=== PATIENT | male | born 1960 | race Caucasian/White ===

== ENCOUNTER 2016-12-18 15:49 | Observation (INO) | payer OTHER ==
[~2016-12-18] VITALS: Ht 182.9 cm; Wt 81.6 kg
[~2016-12-18 15:49] MED LIST: ALPR.25T PO; CEPH-331 PO; CEPH-507 PO; LVF500T PO; NF-TORA10 PO; OMEP20CA6
--- OUTSIDE RECORDS SUMMARY | 2016-12-18 15:53 | XMS REPORT | Continuity of Care Document ---
Author Author [facility] Address Unknown Phone Unavailable Care Team Providers Care Blackjack Supervisor Name Role Phone KENIA RICARDO MD PCP [phone] Insurance Providers Payer Name Policy Number Subscriber Name Relationship UMR [id number] Yan Muse 17 Self / Same As Patient Advance Directives Directive Response Recorded Date/Time Advanced Directives No 08/14/16 7:50pm Chief Complaint and Reason for Visit Chief Complaint Cardiac Complaint Reason for Visit Anxiety Alcohol abuse [id number] Problems Active Problems Medical Problem Onset Date Status Alcohol abuse Unknown Acute Anxiety Unknown Acute High blood pressure Unknown Acute Laceration of finger Unknown Acute Orchitis and epididymitis Unknown Acute Puncture wound of foot ~01/05/2015 Acute Medications Current Home Medications Medication Dose Units Route Directions Days/Qty Instructions Start Date Alprazolam (Xanax) 0.25 Mg 0.25 Mg ORAL Four Times Daily 15 08/14/16 Past Home Medications Medication Directions Ordered Status Omeprazole 20 Mg Capsule.dr, Daily 09/12/13 Discontinued Cephalexin 500 Mg Capsule, 500 Mg Oral Three Times A Day 01/05/15 Discontinued Levofloxacin 500 Mg Tab, 500 Mg Oral Daily 10/28/15 Discontinued Ketorolac Tromethamine 10 Mg Tab, 10 Mg Oral Every 6 Hours as needed for Pain 10/28/15 Discontinued Cephalexin Monohydrate 500 Mg Capsule, 500 Mg Oral Twice A Day 02/24/16 Discontinued Social History Query Response Start Date Stop Date Smoking Status Current every day smoker Hospital Discharge Instructions No hospital discharge instructions. Plan of Care Discharge Date 08/14/16 10:30pm Disposition 01 HOME OR SELF-CARE Condition at Discharge Stable Instructions/Education Provided Generalized Anxiety Disorder (ED) Abuse of Alcohol (GEN) Prescriptions See Medication Section Referrals KENIA RICARDO MD - Additional Instructions/Education ED MARCI if any worse. Xanax as directed. See your doctor this week. Some of your test results may not be complete prior to your leaving the Emergency Department. The Emergency Department is not authorized to give test results over the phone. Please contact the doctor's office listed in this packet of information for your final results. Follow up with your primary care physician or return to the Emergency Department for worsening or worrisome symptoms. * Emergency Department phone number: [phone], x [phone]* MEDICAL RECORD If you need copies of your X-rays, call [phone]. If you need copies of your medical record, including lab results, a signed authorization for release of records will be required. A telephone call for release of Health Information is not allowed. BILLING Billing can sometimes be confusing and frustrating. To help avoid confusion in the future, please take a moment to acquaint yourself with the billing parties for services. SERVICE BILLING DEMOCRAT Emergency Room Services [facility] Physician Services [facility] X-[facility] Patients will receive bills for services from the appropriate provider. If you have any questions about your [facility] bill, our staff will be happy to assist you. Please call [phone], and ask for the billing department. THANK YOU for choosing [facility] as your emergency care provider! Care Plan and Goals ~~Discharge Care Plan~~ Problem: Problems with coping. Goal: Patient will use appropriate resources to deal with life situations. Instructions: Call [place] hotline @ for assistance. Follow up with screener as directed. Functional Status No functional status results. Allergies, Adverse Reactions, Alerts Allergen Type Severity Reaction Status Last Updated Hydrocodone Allergy Mild Active 08/14/16 Oxycodone Allergy Mild rash Active 08/14/16 Acetaminophen Allergy Mild rash Active 08/14/16 Immunizations No immunization records. Vital Signs Acute Vital Signs Vital Response Date/Time Temperature (Fahrenheit) 98.4 08/14/2016 10:34pm Pulse 95 bpm 08/14/2016 10:34pm Respirations 20 08/14/2016 10:34pm Height 6 ft 0 in Weight 188 lb Body Mass Index 25.0 kg/m^2 Results Laboratory Results Test Name Result Units Flags Reference Collection Date/Time Result Date/ Time Comments White Blood Count 8.69 10^3uL 4.0-11.0 08/14/2016 8:15pm 08/14/2016 8: 34pm Red Blood Count 5.00 10^6uL 4.50-5.50 08/14/2016 8:15pm 08/14/2016 8: 34pm Hemoglobin 16.5 g/dL 13.5-17.0 08/14/2016 8:15pm 08/14/2016 8:34pm Hematocrit 45.40 % 39.00-50.00 08/14/2016 8:15pm 08/14/2016 8:34pm Mean Corpuscular Volume 91 FL 80-100 08/14/2016 8:15pm 08/14/2016 8: 34pm Mean Corpuscular Hemoglobin 33.0 PG 26.0-34.0 08/14/2016 8:15pm 2015 8:34pm Mean Corpuscular Hemoglobin Concent 36.3 g/dL 31.0-37.0 08/14/2016 8: 15pm 08/14/2016 8:34pm Red Cell Distribution Width 12.0 % 11.8-15.6 08/14/2016 8:15pm 2015 8:34pm Platelet Count 261 10^3uL 150-450 08/14/2016 8:15pm 08/14/2016 8:34pm Mean Platelet Volume 8.8 FL 6.0-9.5 08/14/2016 8:15pm 08/14/2016 8: 34pm Neutrophils (%) (Auto) 78 % H 51-67 08/14/2016 8:15pm 08/14/2016 8:34pm Lymphocytes (%) (Auto) 11 % L 20-46 08/14/2016 8:15pm 08/14/2016 8:34pm Monocytes (%) (Auto) 8 % 3-11 08/14/2016 8:15pm 08/14/2016 8:34pm Eosinophils (%) (Auto) 1 % 0-4 08/14/2016 8:15pm 08/14/2016 8:34pm Basophils (%) (Auto) 1 % 0-2 08/14/2016 8:15pm 08/14/2016 8:34pm Neutrophils # (Auto) 6.8 X10^3 08/14/2016 8:15pm 08/14/2016 8:34pm Lymphocytes # (Auto) 1.0 X10^3 08/14/2016 8:15pm 08/14/2016 8:34pm Monocytes # (Auto) 0.7 X10^3 08/14/2016 8:15pm 08/14/2016 8:34pm Eosinophils # (Auto) 0.1 10^3uL 08/14/2016 8:15pm 08/14/2016 8:34pm Basophils # (Auto) 0.0 10^3uL 08/14/2016 8:15pm 08/14/2016 8:34pm Volume Urine Centrifuged 12 mL 08/14/2016 8:15pm 08/14/2016 9:09pm Urine Collection Type CLEAN CATCH 08/14/2016 8:15pm 08/14/2016 9: 09pm Urine Color Dark Yellow 08/14/2016 8:15pm 08/14/2016 9:03pm Urine Clarity Clear 08/14/2016 8:15pm 08/14/2016 9:03pm Urine pH 7.5 5.0 - 8.0 08/14/2016 8:15pm 08/14/2016 9:03pm Urine Specific [place] 1.020 1.005-1.030 08/14/2016 8:15pm 2015 9:03pm Urine Protein 2+ H Negative 08/14/2016 8:15pm 08/14/2016 9:03pm Urine Glucose (UA) Negative Negative 08/14/2016 8:15pm 08/14/2016 9: 03pm Urine RBC (Auto) Trace-intact H Negative 08/14/2016 8:15pm 08/14/2016 9:03pm Urine Ketones 2+ H Negative 08/14/2016 8:15pm 08/14/2016 9:03pm Urine Nitrite Negative Negative 08/14/2016 8:15pm 08/14/2016 9:03pm Urine Bilirubin 1+ H Negative 08/14/2016 8:15pm 08/14/2016 9:03pm [place], [place] metabolite and atypical colors may interfere with the interpretation of the Bilirubin reaction. Further testing is required for confirmation. Urine Urobilinogen 1.0 mg/dL 0.2-1.0 08/14/2016 8:15pm 08/14/2016 9: 03pm Urine Leukocyte Esterase Negative Negative 08/14/2016 8:15pm 2015 9:03pm Urine RBC 0-2 /HPF 08/14/2016 8:15pm 08/14/2016 9:09pm Urine WBC None Seen /HPF 08/14/2016 8:15pm 08/14/2016 9:09pm Urine Bacteria None Seen /HPF 08/14/2016 8:15pm 08/14/2016 9:09pm Urine Squamous Epithelial Cells None /LPF 08/14/2016 8:15pm 2015 9:09pm Urine Mucus 3+ H 08/14/2016 8:15pm 08/14/2016 9:09pm Urine Sperm 1+ /HPF 08/14/2016 8:15pm 08/14/2016 9:09pm Sodium Level 143 mmol/L 135-150 08/14/2016 8:15pm 08/14/2016 8:53pm Potassium Level 3.8 mmol/L 3.5-5.1 08/14/2016 8:15pm 08/14/2016 8:53pm Chloride Level 99 mmol/L 98-108 08/14/2016 8:15pm 08/14/2016 8:53pm Carbon Dioxide Level 30 mmol/L H 22-29 08/14/2016 8:15pm 08/14/2016 8: 53pm Anion Gap 18.4 MEQ/L H 3-15 08/14/2016 8:15pm 08/14/2016 8:53pm Blood Urea Nitrogen 15 mg/dL 7-18 08/14/2016 8:15pm 08/14/2016 8:53pm Creatinine 0.77 mg/dL L 0.8-1.5 08/14/2016 8:15pm 08/14/2016 8:53pm BUN/Creatinine Ratio 19 10-20 08/14/2016 8:15pm 08/14/2016 8:53pm Estimat Glomerular Filtration Rate 126.5 08/14/2016 8:15pm 2015 8:53pm Estimated GFR (Non- 104.5 08/14/2016 8:15pm 2015 8:53pm Glucose Level 97 mg/dL # 70-110 08/14/2016 8:15pm 08/14/2016 8:53pm Calculated Osmolality 277 mosm/L L 280-300 08/14/2016 8:15pm 08/14/2016 8:53pm Calcium Level 9.5 mg/dL 8.8-10.8 08/14/2016 8:1508/14/2016 8:53pm Calcium/Ionized Calcium Ratio 3.7 mg/dL L 3.8-4.6 08/14/2016 8:15 8:53pm Magnesium Level 2.0 mg/dL 1.6-2.3 08/14/2016 8:15pm 08/14/2016 8:53pm Total Bilirubin 1.1 mg/dL H 0.1-1.0 08/14/2016 8:15pm 08/14/2016 8:53pm Alkaline Phosphatase 75 U/L 38-126 08/14/2016 8:1508/14/2016 8:53pm Aspartate Amino Transf (AST/SGOT) 31 U/L 15-37 08/14/2016 8:152015 8:53pm Alanine Aminotransferase (ALT/SGPT) 35 U/L 30-65 08/14/2016 8:15pm 8:53pm Total Creatine Kinase 101 U/L 55-170 08/14/2016 8:15pm 08/14/2016 8: 53pm Creatine Kinase MB 1.0 ng/mL 0.0-6.0 08/14/2016 8:1508/14/2016 9: 02pm Troponin I < 0.012 ng/mL 0.010-0.080 08/14/2016 8:15pm 08/14/2016 9: 02pm TQ-Mne-S-Type Natriuretic Peptide 23 pg/mL 0-125 08/14/2016 8:15pm 9:02pm <300 ng/mL - HF unlikely Age <50 years, NT-proBNP >450 pg/mL - HF Likely Age 50-75 yrs, NT-proBNP >900 pg/mL - HF Likely Age >75 yrs, NT-proBNP >1800 - HF likely Total Protein 8.8 g/dL H 6.4-8.5 08/14/2016 8:15pm 08/14/2016 8:53pm Albumin 4.9 g/dL 3.4-5.0 08/14/2016 8:15pm 08/14/2016 8:53pm Albumin/Globulin Ratio 1.256 1.1-1.8 08/14/2016 8:15pm 08/14/2016 8: 53pm Thyroid Stimulating Hormone (TSH) 1.03 uIU/mL 0.46-4.68 08/14/2016 8: 15pm 08/14/2016 10:20pm Serum Alcohol < 10.0 mg/dL L 10-80 08/14/2016 8:15pm 08/14/2016 8:53pm Procedures No known history of procedures. Encounters Encounter Location Arrival/Admit Date Discharge/Depart Date Attending Provider Departed Emergency Room [facility] 08/14/16 7:32pm 08/14/16 10:30pm WALTER LEONARD MD Recent Diagnosis
[2016-12-18] MEDS ORDERED: LORazepam 2 MG/ML (ATIVAN) 1 ML VIAL IV ONE (16:15)
[2016-12-18] MEDS ORDERED: MAGNESIUM SULFATE 1 GM/2 ML VIAL ONE (16:19)
[2016-12-18] MEDS ORDERED: THIAMINE 100 MG/ML (VITAMIN B1) 2 ML VIAL ONE (16:19)
[2016-12-18 16:30] LABS: BASOPHILS % (AUTO) 0 % (0-2); EOSINOPHILS # (AUTO) 0.1 10^3uL; EOSINOPHILS % (AUTO) 1 % (0-4); LYMPHOCYTES # (AUTO) 1.2 X10^3; MEAN CORPUSCULAR VOLUME 91 FL (80-100); MEAN PLATELET VOLUME 9.1 FL (6.0-9.5); MONOCYTES # (AUTO) 0.9 X10^3; MONOCYTES % (AUTO) 14 % (3-11); NEUTROPHILS # (AUTO) 4.2 X10^3; NEUTROPHILS % (AUTO) 66 % (51-67); PLATELET COUNT 174 10^3uL (150-450)
[2016-12-18 16:31] LABS: MEAN CORPUSCULAR HEMOGLOBIN 32.6 PG (26.0-34.0)
[2016-12-18] MEDS: MAGNESIUM SULFATE 1GM VIAL 2 GM, THIAMINE INJ 100 MG, MULTIVITAMIN INJ 10 ML in D5LR 1,... IV SCH ×3 (16:31→20:19)
[2016-12-18 16:36] LABS: CLARITY,URINE Clear; GLUCOSE, URINE (UA) Negative (Negative); LEUKOCYTE ESTERASE ,URINE Negative (Negative); PH,URINE 6.5 (5.0 - 8.0)
[2016-12-18 16:46] LABS: BILIRUBIN,URINE 1+ (Negative); COLOR,URINE Dark Yellow; URINE CENTRIFUGED VOLUME 12 mL
[2016-12-18 16:47] LABS: AMPHETAMINE SCREEN, URINE Negative (Negative); CANNABINOID SCREEN, URINE Negative (Negative); METHAMPHETAMINE SCREEN URINE S NEGATIVE (NEGATIVE); OPIATE SCREEN URINE Negative (Negative); PROPOXYPHENE STAT NEGATIVE (NEGATIVE)
[2016-12-18 16:50] LABS: ALBUMIN 4.4 g/dL (3.4-5.0); ALKALINE PHOSPHATASE 100 U/L (38-126); ANION GAP 19.5 MEQ/L (3-15); BUN/CREATININE RATIO 25 (10-20); CALCULATED IONIZED CALCIUM 3.9 mg/dL (3.8-4.6); CREATINE KINASE 104 U/L (55-170); LIPASE* 147 U/L (23-300); TOTAL PROTEIN 7.3 g/dL (6.4-8.5)
[2016-12-18] MEDS ORDERED: LABETALOL HCL 20 MG/4 ML VIAL IV ONE (17:00)
--- NOTE | 2016-12-18 17:19 | Diagnostic Imaging Report ---
INDICATION: Shortness breath. EXAM: PA and lateral chest. FINDINGS: The heart size and pulmonary vascularity are normal. The lungs are clear. There are no effusions or pneumothoraces. IMPRESSION: Negative chest. Dictated by: Dictated on workstation # [id number]
--- NOTE | 2016-12-18 18:40 | NUR ---
Patient arrives to room 301 via wheelchair from ED accompanied by Karina Michelle RN. Alert and oriented X3. Denies pain, tremors, anxiety, or other distress. BP upon arrival = 153/102 and pulse= [address] Esteves in room to see patient. See admission for full assessment.
[2016-12-18 18:43] VITALS: BP 153/102
[2016-12-18] MEDS ORDERED: cloNIDine 0.1 MG (CATAPRES) TAB PO ONE (18:45)
[2016-12-18] MEDS: cloNIDine 0.1 MG (CATAPRES) TAB PO SCH ×2 (19:00→19:24)
--- NOTE | 2016-12-18 19:03 | NUR ---
Manual BP 158/107. Catapres 0.1mg PO X1 provided per verbal order from Dr. Esteves. Will continue to monitor.
[2016-12-18] MEDS ORDERED: ACETAMINOPHEN 500 MG TAB (TYLENOL) PO PRN (19:10)
[2016-12-18 19:44] VITALS: BP 147/96
--- NOTE | 2016-12-18 19:48 | History and Physical (E) ---
History & Physical PCP: Isacc Howell MD CC I was sweating profusely and Iwas very anxious. HPI pt. is an alcoholic and he stopped drinking 3 days ago. on weekdays he drinks ,he says, 8-10 ounces of hard liquorma night and on the weekends 2 to 3 times that much. PMH pt. may have a touch of emphysema; he is an alcoholic and he has had at least 4 "kidney stones " which he knows about. PSH left herniorraphy; repair of right biceps tendon repair; 4 surgically removed wisdom teeth ALLERGIES: Please see list at end of report. HOME MEDICATIONS: Please see list at end of report. FH non contributory SH pt is ;he has 3 adult sons;smoked off and on for 41 years for a total of about 12 pack years of cigaretts;no street drugs;pt. has worked in the same [employer] shop for 21 years.pt. has attended a few AA meetings over the years ROS CONSTITUTION: Denies weight loss or gain. Denies fever or chills. HEENT: No change in vision or hearing. No sores in mouth, sore throat. CV: No chest pain, palpitations. PULM: No cough, shortness of breath, difficulty breathing. GI: No upset stomach, nausea, vomiting, constipation, or diarrhea. No blood in stool. : No dysuria. No blood in urine. MS: No new muscle or joint aches and pains. NEURO: No numbness or tingling. No weakness. INTEG: No rashes, lesions, or sores. ENDO: No heat or cold intolerance. No polydipsia or polyuria. HEME/LYMPH: No easy bruising or bleeding. No swollen glands. PSYCH: No change in mood or behavior;lots of sweating today and quite a bit of anxiety. OBJECTIVE GEN: Awake, alert, oriented, NAD HEENT: EOMI, PERRL, dry oral mucosa and dry tongue. CV: RRR S1 S2 normal with no murmur LUNGS: CTA Bilaterally ABD: Soft, NT/ND with normal bowel sounds. EXTR: No C/C/E. Normal peripheral pulses. INTEG: No rash and no bruising NEURO: No focal motor neuro deficit. Weight: 81.6 kg LAB12/18/16 16:25 MICRO IMAGING pt. had a negative chest xray in the er. ASSESSMENT 1.alcohol abuse 2.hypertension,uncontrolled 3.anxiety 4.alcohol withdrawal PLAN We plan to control patient's anxiety with ativan and librium; we shall try to tame the hypertension with clonidine and we shall encourage hydration. Allergies/Home Medications Allergies: Coded Allergies: hydrocodone (Verified Allergy, Mild, 12/18/16) rash oxycodone (Verified Allergy, Mild, rash, 12/18/16) Reported Home Medications Discontinued Medications Alprazolam (Alprazolam) 0.25 MG PO QID Discontinued Reason: Update list Copies to: End of Report . KATHRYN CALDERON DO Dec 18, 2016 19:48
[2016-12-18 20:48] VITALS: BP 149/91
[2016-12-18] MEDS: LORazepam 0.5 MG (ATIVAN) TABLET PO PRN (21:36)
[2016-12-18] MEDS: CHLORDIAZEPOXIDE 10 MG PO SCH (21:56)
[2016-12-18 23:42] VITALS: BP 140/86
[2016-12-19] MEDS: LORazepam 0.5 MG (ATIVAN) TABLET PO PRN (01:52)
--- NOTE | 2016-12-19 01:55 | NUR ---
Pt c/o "not being able to sleep." "This is when I usually start drinking to help me fall asleep." PRN martin provided.
[2016-12-19 04:02] VITALS: BP 166/95
--- NOTE | 2016-12-19 05:07 | NUR ---
Pt c/o coughing and acid reflux. Requests something for that and a nicotine patch. Telehospitalist notified.
[2016-12-19] MEDS ORDERED: NICOTINE 14 MG (NICODERM) PATCH TD SCH (05:30)
[2016-12-19] MEDS ORDERED: BENZONATATE 100 MG (TESSALON) CAPSULE PO PRN (05:30)
[2016-12-19] MEDS ORDERED: PANTOPRAZOLE 40 MG (PROTONIX) TAB PO SCH ×2 (05:30→08:25)
[2016-12-19] MEDS: CHLORDIAZEPOXIDE 10 MG PO SCH ×2 (05:34→14:00)
--- NOTE | 2016-12-19 05:45 | NUR ---
Nicotine patch placed to R shoulder. PRN Tessalon perles, tylenol given for cough. Protonix given per order. Pt verbalizes concern over cough. Reassurance provided.
[2016-12-19 07:20] VITALS: BP 158/97
--- NOTE | 2016-12-19 08:39 | Progress Note (E) ---
Progress Note S: Awake and alert, Ate breakfast but feels achey and miserable- thinks he has the flu, Still feels a bit anxious O: I & O Past 24 hrs 12/19/16 07:00 Intake Total 1550 ml Output Total 1300 ml Balance 250 ml Intake Oral 1550 ml Output Urine Total 1300 ml # Bowel Movements 1 Vitals: Vital Signs Date Time Temp Pulse Resp B/P Pulse Ox O2 Delivery O2 Flow Rate FiO2 12/19/16 07:20 97.6 73 16 158/97 96 Room air GEN: Awake, alert, oriented, NAD HEENT: EOMI, PERRL, moist mucosa CV: RRR S1 S2 normal with no murmur LUNGS: CTA Bilaterally- loose cough ABD: Soft, NT/ND with normal bowel sounds. EXTR: No C/C/E. Normal peripheral pulses. INTEG: No rash and no bruising NEURO: No focal motor neuro deficit. Weight: 81.6 kg CBC BMP Last 24 Hrs 12/18/16 16:25 Laboratory Results Past 24 Hrs 12/18/16 16:00: Ur Tricyclic Antidepressants Screen Negative, Urine Amphetamines Screen Negative , Urine Bacteria Rare, Urine Barbiturates Screen Negative, Urine Benzodiazepines Screen Negative, Urine Bilirubin 1+, Urine Blood Trace-lysed, Urine Cannabinoids Screen Negative, Urine Clarity Clear, Urine Cocaine Screen Negative, Urine Collection Type Clean catch, Urine Color Dark yellow, Urine Glucose (UA) Negative, Urine Hyaline Casts 1+, Urine Ketones 3+, Urine Leukocyte Esterase Negative, Urine Methadone Screen Negative, Urine Methamphetamines Screen Negative, Urine Microscopic RBC 2-5, Urine Mucus 3+, Urine Nitrite Negative, Urine Opiates Screen Negative, Urine Oxycodone Screen Negative, Urine Phencyclidine Screen Negative, Urine Propoxyphene Screen Negative, Urine Protein 3+, Urine Specific [place] 1.025, Urine Squamous Epithelial Cells 5-10, Urine Urobilinogen 1.0, Urine WBC 0-2, Urine pH 6.5, Volume Urine Centrifuged 12 ml 12/18/16 16:25: Alanine Aminotransferase (ALT/SGPT) 68, Albumin 4.4, Albumin/Globulin Ratio 1.517, Alkaline Phosphatase 100, Anion Gap 19.5, Aspartate Amino Transf (AST/ SGOT) 48, BUN/Creatinine Ratio 25, Basophils # (Auto) 0.0, Basophils (%) (Auto) 0, Blood Urea Nitrogen 17, C-Reactive Protein 1.30, Calcium Level 9.1, Calcium/ Ionized Calcium Ratio 3.9, Calculated Osmolality 275, Carbon Dioxide Level 26, Chloride Level 99, Creatine Kinase MB 0.7, Creatinine 0.69, Eosinophils # (Auto ) 0.1, Eosinophils (%) (Auto) 1, Estimat Glomerular Filtration Rate 143.0, Estimated GFR (Non- 118.2, Glucose Level 107, Hematocrit 48.60, Hemoglobin 17.5, Lactic Acid Level 1.2, Lipase 147, Lymphocytes # (Auto) 1.2, Lymphocytes (%) (Auto) 18, Mean Corpuscular Hemoglobin 32.6, Mean Corpuscular Hemoglobin Concent 36.0, Mean Corpuscular Volume 91, Mean Platelet Volume 9.1, Monocytes # (Auto) 0.9, Monocytes (%) (Auto) 14, Neutrophils # (Auto) 4.2, Neutrophils (%) (Auto) 66, Platelet Count 174, Potassium Level 4.0, Red Blood Count 5.37, Red Cell Distribution Width 11.8, Serum Alcohol < 10.0, Sodium Level 141, Total Bilirubin 0.7, Total Creatine Kinase 104, Total Protein 7.3, Troponin I 0.018, White Blood Count 6.40 ASSESSMENT 1.alcohol abuse 2.hypertension,uncontrolled 3.anxiety 4.alcohol withdrawal PLAN: We plan to control patient's anxiety with ativan and librium; we shall try to tame the hypertension with clonidine and we shall encourage hydration. addendum : pt did complain to me about one episode of diarrhea last night. He looks well today and he can be discharged with a couple of days of ativan prescribed. heart shows aregular rate and rhythm; lungs are cta ,bilaterally; abd. is soft and nontender. pt has no cyanosis or edema in the lower extremities. assessment: 1.alcohol withdrawal 2.alcohol abuse 3.Nervousness and stress due to the alcohol withdrawal. Plan ;DISCHARGE TO HOME with directions to fu with his Doctor and to attend AA meetings. We shall prescribe 2 days of ativan for his transition comfort. I have read and agree with Ms. Kirkpatrick's progress note,diagnoses and plan. We did discuss him at length. Karina Kirkpatrick APRN Dec 19, 2016 08:39 KATHRYN CALDERON DO Dec 19, 2016 11:00
[2016-12-19] MEDS ORDERED: CHLORDIAZEPOXIDE 10 MG PO SCH (09:00)
--- NOTE | 2016-12-19 09:00 | NUR ---
Pt resting in bed at this time. States he did not get much sleep last night and feels lethargic. Denies pain or nausea. Skin warm, dry, intact. Resprs nonlabored, even on RA. SL intact. Denies needs.
[2016-12-19] MEDS: cloNIDine 0.1 MG (CATAPRES) TAB PO SCH (09:33)
[2016-12-19] MEDS ORDERED: LORazepam 0.5 MG (ATIVAN) TABLET PO PRN (10:30)
[2016-12-19] MEDS ORDERED: NS FLUSH 3 ML PRN IV (10:35)
[2016-12-19] MEDS ORDERED: NS FLUSH 10 ML PRN IV (10:35)
[2016-12-19 12:22] VITALS: BP 135/99
--- NOTE | 2016-12-19 12:22 | Discharge Instructions (E) ---
Discharge Instructions Instructions Do take your two new medicines as prescribed.Do follow WITH Dr Howell as per the appt. he has given you. Go to AA; listen to your sponser and no more alcohol. If you can stop smoking, that is a valuable step also. Activity Instructions you may do any activity as tolerated. Discharge Diet: Heart Healthy KATHRYN CALDERON DO Dec 19, 2016 12:22
--- NOTE | 2016-12-19 12:50 | Discharge Summary (E FT) ---
Discharge Summary (E FT) Admit Date Dec 18, 2016 at 17:39 Discharge Date December Admitting Provider Kathryn Calderon DO Primary Care Provider Isacc Howell MD Attending Provider Kathryn Calderon DO Consulting Provider Hospital Course Summary Mr Yan Pope was admitted to our hospital through the ER with a diagnoses of : alcohol withdrawal 2.alcohol abuse 3.anxiety, and 4.hypertension,untreated. We prescribed ativan and librium for his nerves and clonidine for his hypertension.He did well as a patient. He did complain of one episode of diarrhea last night,but that was a minor blip on the big picture. He is stable and much better today and we are discharging him to his home. We have prescribed both a few ativan to him as well as 0.1 mg clonidine bid for his hypertension Discharge Disposition discharged to home. Follow up Instructions Do take your two new medicines as prescribed.Do follow WITH Dr Howell as per the appt. he has given you. Go to AA; listen to your sponser and no more alcohol. If you can stop smoking, that is a valuable step also. Copies to: End of Report . KATHRYN CALDERON DO Dec 19, 2016 12:50
[2016-12-19] MEDS ORDERED: LORA0.5T PO (13:15)
[2016-12-19] MEDS ORDERED: LORA-404 PO (13:15)
[2016-12-19] MEDS ORDERED: CLN.1T PO (13:15)
[2016-12-19] MEDS ORDERED: CLON0.1T PO (13:23)
--- NOTE | 2016-12-19 14:29 | NUR ---
Discharge instructions reviewed with patient, demonstrates understanding. SL removed with catheter tip intact. No redness or edema noted. Pt education provided for new medications and alcohol withdrawal. ROSIBEL Librium and PRN Ativan held at this time per Tom Cantor d/t pt not having a ride home and medications potentially impairing his driving. Pt dismissed via ambulation to private vehicle accompanied by Darren Villavicencio CNA.
[2016-12-20] MEDS ORDERED: PATCH REMOVAL TOP SCH (08:59)
[2016-12-20] MEDS ORDERED: NS FLUSH 3 ML DAILY IV SCH (09:00)
== END 2016-12-19 14:28 | disposition home or self-care (01) ==
LOC: ED 15:50 → INTOOBSV 17:39 → MED/SURG 17:39
DX: F10.230 Alcohol dependence with withdrawal, uncomplicated (principal); I16.0 Hypertensive urgency; I10 Essential (primary) hypertension; R19.7 Diarrhea, unspecified; F41.9 Anxiety disorder, unspecified; F17.210 Nicotine dependence, cigarettes, uncomplicated; Z87.442 Personal history of urinary calculi
CPT/HCPCS: 36415; 71020; 80053; 80307; 80320; 81003; 81015; 82550; 82553; 83605; 83690; 84484; 85025; 86140; 87486; 87581; 87633; 87798; 96374; 96375; 99283; J2060; J3411; J3475; J3490; 93010; 99218; 99284

== ENCOUNTER 2016-12-21 07:40 | Emergency (ER) | payer OTHER ==
[~2016-12-21] VITALS: Ht 182.9 cm; Wt 86.0 kg
[~2016-12-21 07:40] MED LIST changes: +SODIUM CHLORIDE FLUSH 10 ML SYR IV PRN; +SODIUM CHLORIDE FLUSH 3 ML SYR IV ONE
--- OUTSIDE RECORDS SUMMARY | 2016-12-21 07:45 | XMS REPORT | Continuity of Care Document ---
Author Author [facility] Address Unknown Phone Unavailable Care Team Providers Care Otr Owner Operator Name Role Phone RAS HOWELL MD PCP [phone] Insurance Providers Payer Name Policy Number Subscriber Name Relationship [employer] [id number] Yan Muse 18 Self / Same As Patient Advance Directives Directive Response Recorded Date/Time Advanced Directives No 12/18/16 7:03pm Chief Complaint and Reason for Visit Chief Complaint ETOH DETOX Reason for Visit Laceration of finger Orchitis and epididymitis Puncture wound of foot Problems Active Problems Medical Problem Onset Date Status Alcohol abuse ~12/18/2016 Acute Anxiety Unknown Acute High blood pressure Unknown Acute Laceration of finger Unknown Acute Orchitis and epididymitis Unknown Acute Puncture wound of foot ~01/05/2015 Acute Medications Current Home Medications Medication Dose Units Route Directions Days/Qty Instructions Start Date Lorazepam 0.5 Mg 0.5 Mg ORAL Every 5 Hours as needed for Excessive Anxiety 8 12/19/16 Clonidine Hcl 0.1 Mg 0.1 Mg ORAL Twice A Day 60 12/19/16 Past Home Medications Medication Directions Ordered Status [...] Mg Oral Twice A Day 02/24/16 Discontinued Alprazolam (Xanax) 0.25 Mg Tablet, 0.25 Mg Oral Four Times Daily 08/14/16 Discontinued Social History Social History Problem Response Recorded Date/Time Onset Date Status Occupation or Former Occupation works for [employer] 12/18/2016 7:03pm Exposure to occupational hazards Yes 12/18/2016 7:03pm Query Response Start Date Stop Date Smoking Status Current every day smoker Hospital Discharge Instructions Patient's Instructions Instructions Instructions Do take your two new medicines as prescribed.Do follow WITH Dr Howell as per the appt. he has given you. Go to AA; listen to your sponser and no more alcohol. If you can stop smoking, that is a valuable step also. Activity Instructions you may do any activity as tolerated. Discharge Diet: Heart Healthy Orders DISCHARGE: Discharge to:: HOME Home, Self Care Plan of Care Discharge Date 12/19/16 2:28pm Disposition 01 HOME OR SELF-CARE Instructions/Education Provided Clonidine Lorazepam Alcohol Withdrawal Prescriptions See Medication Section Referrals Megan FRYE (Family Practice) - 12/22/16 Reason(s) for Referral: Appt with Dr Mckeon SundayDecember 22 at 11:00 Care Plan and Goals See Discharge Instructions Section Functional Status Query Response Date Recorded Activity Ambulate Bathroom Returned to bed December 19, 2016 10:14am Assistance Required Independent December 19, 2016 10:14am Level of Conscious Alert Oriented x4 December 19, 2016 9:38am Movement Moves extremities December 19, 2016 9:38am Allergies, Adverse Reactions, Alerts Allergen Type Severity Reaction Status Last Updated Hydrocodone Allergy Mild Active 12/18/16 Oxycodone Allergy Mild rash Active 12/18/16 Immunizations No immunization records. Vital Signs Acute Vital Signs Vital Response Date/Time Temperature (Fahrenheit) 97.4 12/19/2016 12:22pm Pulse 83 bpm 12/19/2016 12:22pm Respirations 18 12/19/2016 12:22pm Height 6 ft 0 in Weight 179 lb Body Mass Index 24.0 kg/m^2 Results Laboratory Results Test Name Result Units Flags Reference Collection Date/Time Result Date/ Time Comments White Blood Count 6.40 10^3uL 4.0-11.0 12/18/2016 4:12/18/2016 4: 31pm Red Blood Count 5.37 10^6uL 4.50-5.50 12/18/2016 4:12/18/2016 4: 31pm Hemoglobin 17.5 g/dL H 13.5-17.0 12/18/2016 4:12/18/2016 4:31pm Hematocrit 48.60 % 39.00-50.00 12/18/2016 4:12/18/2016 4:31pm Mean Corpuscular Volume 91 FL 80-100 12/18/2016 4:12/18/2016 4: 31pm Mean Corpuscular Hemoglobin 32.6 PG 26.0-34.0 12/18/2016 4:2016 4:31pm Mean Corpuscular Hemoglobin Concent 36.0 g/dL 31.0-37.0 12/18/2016 4: 12/18/2016 4:31pm Red Cell Distribution Width 11.8 % 11.8-15.6 12/18/2016 4:2016 4:31pm Platelet Count 174 10^3uL 150-450 12/18/2016 4:12/18/2016 4:31pm Mean Platelet Volume 9.1 FL 6.0-9.5 12/18/2016 4:12/18/2016 4: 31pm Neutrophils (%) (Auto) 66 % 51-67 12/18/2016 4:12/18/2016 4:31pm Lymphocytes (%) (Auto) 18 % L 20-46 12/18/2016 4:12/18/2016 4:31pm Monocytes (%) (Auto) 14 % H 3-11 12/18/2016 4:12/18/2016 4:31pm Eosinophils (%) (Auto) 1 % 0-4 12/18/2016 4:12/18/2016 4:31pm Basophils (%) (Auto) 0 % 0-2 12/18/2016 4:12/18/2016 4:31pm Neutrophils # (Auto) 4.2 X10^3 12/18/2016 4:25pm 12/18/2016 4:31pm Lymphocytes # (Auto) 1.2 X10^3 12/18/2016 4:25pm 12/18/2016 4:31pm Monocytes # (Auto) 0.9 X10^3 12/18/2016 4:25pm 12/18/2016 4:31pm Eosinophils # (Auto) 0.1 10^3uL 12/18/2016 4:25pm 12/18/2016 4:31pm Basophils # (Auto) 0.0 10^3uL 12/18/2016 4:25pm 12/18/2016 4:31pm Volume Urine Centrifuged 12 mL 12/18/2016 4:00pm 12/18/2016 4:47pm Urine Collection Type CLEAN CATCH 12/18/2016 4:00pm 12/18/2016 4: 47pm Urine Color Dark Yellow 12/18/2016 4:00pm 12/18/2016 4:46pm Urine Clarity Clear 12/18/2016 4:00pm 12/18/2016 4:46pm Urine pH 6.5 5.0 - 8.0 12/18/2016 4:00pm 12/18/2016 4:46pm Urine Specific [place] 1.025 1.005-1.030 12/18/2016 4:00pm 2016 4:46pm Urine Protein 3+ H Negative 12/18/2016 4:00pm 12/18/2016 4:46pm Urine Glucose (UA) Negative Negative 12/18/2016 4:00pm 12/18/2016 4: 46pm Urine Blood Trace-lysed H Negative 12/18/2016 4:00pm 12/18/2016 4: 46pm Urine Ketones 3+ H Negative 12/18/2016 4:00pm 12/18/2016 4:46pm Urine Nitrite Negative Negative 12/18/2016 4:00pm 12/18/2016 4:46pm Urine Bilirubin 1+ H Negative 12/18/2016 4:00pm 12/18/2016 4:46pm Indican, L[place]ine metabolite and atypical colors may interfere with the interpretation of the Bilirubin reaction. Further testing is required for confirmation. Urine Urobilinogen 1.0 mg/dL 0.2-1.0 12/18/2016 4:00pm 12/18/2016 4: 46pm Urine Leukocyte Esterase Negative Negative 12/18/2016 4:00pm 2016 4:46pm Urine Microscopic RBC 2-5 /HPF 12/18/2016 4:00pm 12/18/2016 4:47pm Urine WBC 0-2 /HPF 12/18/2016 4:00pm 12/18/2016 4:47pm Urine Bacteria Rare /HPF 12/18/2016 4:00pm 12/18/2016 4:47pm Urine Squamous Epithelial Cells 5-10 /LPF 12/18/2016 4:00pm 2016 4:47pm Urine Mucus 3+ H 12/18/2016 4:00pm 12/18/2016 4:47pm Urine Hyaline Casts 1+ /LPF 12/18/2016 4:00pm 12/18/2016 4:47pm Sodium Level 141 mmol/L 135-150 12/18/2016 4:25pm 12/18/2016 4:53pm Potassium Level 4.0 mmol/L 3.5-5.1 12/18/2016 4:25pm 12/18/2016 4:53pm Chloride Level 99 mmol/L 98-108 12/18/2016 4:25pm 12/18/2016 4:53pm Carbon Dioxide Level 26 mmol/L 22-29 12/18/2016 4:25pm 12/18/2016 4: 53pm Anion Gap 19.5 MEQ/L H 3-15 12/18/2016 4:25pm 12/18/2016 4:53pm Blood Urea Nitrogen 17 mg/dL 7-18 12/18/2016 4:25pm 12/18/2016 4:53pm Creatinine 0.69 mg/dL L 0.8-1.5 12/18/2016 4:25pm 12/18/2016 4:53pm BUN/Creatinine Ratio 25 H 10-20 12/18/2016 4:25pm 12/18/2016 4:53pm Estimat Glomerular Filtration Rate 143.0 12/18/2016 4:25pm 2016 4:53pm Estimated GFR (Non- 118.2 12/18/2016 4:25pm 2016 4:53pm Glucose Level 107 mg/dL 70-110 12/18/2016 4:25pm 12/18/2016 4:53pm Calculated Osmolality 275 mosm/L L 280-300 12/18/2016 4:25pm 12/18/2016 4:53pm Calcium Level 9.1 mg/dL 8.8-10.8 12/18/2016 4:25pm 12/18/2016 4:53pm Calcium/Ionized Calcium Ratio 3.9 mg/dL 3.8-4.6 12/18/2016 4:25pm 12/18 4:53pm Total Bilirubin 0.7 mg/dL 0.1-1.0 12/18/2016 4:25pm 12/18/2016 4:53pm Alkaline Phosphatase 100 U/L 38-126 12/18/2016 4:25pm 12/18/2016 4: 53pm Aspartate Amino Transf (AST/SGOT) 48 U/L H 15-37 12/18/2016 4:25pm 12/18 4:53pm Alanine Aminotransferase (ALT/SGPT) 68 U/L H 30-65 12/18/2016 4:25pm 11/2016 4:53pm Total Creatine Kinase 104 U/L 55-170 12/18/2016 4:25pm 12/18/2016 4: 53pm Creatine Kinase MB 0.7 ng/mL 0.0-6.0 12/18/2016 4:25pm 12/18/2016 5: 00pm Troponin I 0.018 ng/mL 0.010-0.080 12/18/2016 4:25pm 12/18/2016 5:00pm Total Protein 7.3 g/dL 6.4-8.5 12/18/2016 4:pm 12/18/2016 4:53pm Albumin 4.4 g/dL 3.4-5.0 12/18/2016 4:pm 12/18/2016 4:53pm Albumin/Globulin Ratio 1.517 1.1-1.8 12/18/2016 4:25pm 12/18/2016 4: 53pm Lipase 147 U/L 23-300 12/18/2016 4:25pm 12/18/2016 4:53pm C-Reactive Protein 1.30 mg/dL H 0.0-0.9 12/18/2016 4:pm 12/18/2016 4: 53pm Lactic Acid Level 1.2 mmol/L 0.7-2.1 12/18/2016 4:25pm 12/18/2016 4: 40pm Serum Alcohol < 10.0 mg/dL L 10-80 12/18/2016 4:25pm 12/18/2016 4:53pm Adenovirus (PCR) Negative Negative 12/19/2016 9:05am 12/19/2016 10: 37am Coronavirus Type 229E (PCR) Negative Negative 12/19/2016 9:05am 12/19 10:37am Coronavirus Type HKU1 (PCR) Negative Negative 12/19/2016 9:05am 12/19 10:37am Coronavirus Type NL63 (PCR) Negative Negative 12/19/2016 9:05am 12/19 10:37am Coronavirus Type OC43 (PCR) Negative Negative 12/19/2016 9:05am 12/19 10:37am Human Metapneumovirus (PCR) Negative Negative 12/19/2016 9:05am 12/19 10:37am Enterovirus/Rhinovirus (PCR) Negative Negative 12/19/2016 9:05am 12/2016 10:37am Influenza Type A (H1) (PCR) Negative Negative 12/19/2016 9:05am 12/19 10:37am Influenza Virus Type B (PCR) Negative Negative 12/19/2016 9:05am 12/2016 10:37am Parainfluenza Type 1 (PCR) Negative Negative 12/19/2016 9:05am 2016 10:37am Parainfluenza Type 2 (PCR) Negative Negative 12/19/2016 9:05am 2016 10:37am Parainfluenza Type 3 (PCR) Negative Negative 12/19/2016 9:05am 2016 10:37am Parainfluenza Type 4 (PCR) Negative Negative 12/19/2016 9:05am 2016 10:37am Respiratory Syncytial Virus (PCR) Negative Negative 12/19/2016 9:05am 12/19/2016 10:37am Bordetella parapertussis DNA (PCR) Negative Negative 12/19/2016 9: 05am 12/19/2016 10:37am Chlamydophila pneumoniae (PCR) Negative Negative 12/19/2016 9:05am 10:37am Mycoplasma pneumoniae (PCR) Negative Negative 12/19/2016 9:05am 12/19 10:37am Procedures No known history of procedures. Encounters Encounter Location Arrival/Admit Date Discharge/Depart Date Attending Provider Discharged Inpatient (obs) [facility] 12/18/16 5:39pm 12/19/16 2: 28pm KATHRYN CALDERON DO Recent Diagnosis Laceration of finger Orchitis and epididymitis Puncture wound of foot
[2016-12-21 08:06] VITALS: BP 161/104
[2016-12-21 08:28] LABS: MEAN CORPUSCULAR HGB CONC 34.5 g/dL (31.0-37.0); MEAN CORPUSCULAR VOLUME 94 FL (80-100); MEAN PLATELET VOLUME 9.1 FL (6.0-9.5); PLATELET COUNT 228 10^3uL (150-450); WHITE BLOOD COUNT 5.83 10^3uL (4.0-11.0)
[2016-12-21 08:44] LABS: MEAN CORPUSCULAR HEMOGLOBIN 32.3 PG (26.0-34.0)
[2016-12-21 08:49] LABS: BAND NEUTROPHILS % 0 % (0-6); EOSINOPHILS % 4 % (0-4); MONOCYTES # 0.2 #; MONOCYTES % 4 % (3-11); SEGMENTED NEUTROPHILS % 45 % (51-67)
[2016-12-21 08:50] LABS: LYMPHOCYTES # 1.9 #; RBC MORPH NORMAL (NORMAL); TOTAL CELLS COUNTED 100
[2016-12-21 08:55] LABS: BILIRUBIN,URINE Negative (Negative); CLARITY,URINE Clear; COLOR,URINE Light Yellow; GLUCOSE, URINE (UA) Negative (Negative); LEUKOCYTE ESTERASE ,URINE Negative (Negative); UROBILINOGEN,URINE 0.2 mg/dL (0.2-1.0)
[2016-12-21 08:56] LABS: URINE CENTRIFUGED VOLUME 12 mL
[2016-12-21 09:00] LABS: RBC,URINE 0-2 /HPF
[2016-12-21 09:00] LABS: ALBUMIN 4.3 g/dL (3.4-5.0); ALKALINE PHOSPHATASE 82 U/L (38-126); ANION GAP 17.2 MEQ/L (3-15); BUN/CREATININE RATIO 12 (10-20); CALCULATED IONIZED CALCIUM 3.9 mg/dL (3.8-4.6); CREATINE KINASE 40 U/L (55-170); TOTAL PROTEIN 7.3 g/dL (6.4-8.5)
[2016-12-21 09:10] LABS: AMPHETAMINE SCREEN, URINE Negative (Negative); CANNABINOID SCREEN, URINE Negative (Negative); METHAMPHETAMINE SCREEN URINE S NEGATIVE (NEGATIVE); OPIATE SCREEN URINE Negative (Negative); PROPOXYPHENE STAT NEGATIVE (NEGATIVE)
[2016-12-21] MEDS ORDERED: cloNIDine 0.1 MG (CATAPRES) TAB PO ONE (09:10)
--- NOTE | 2016-12-21 09:11 | NUR ---
THIS RN SPOKE WITH [facility] TO CONFIRM PRESCRIBED MEDICATION. PATIENT WAS PRESCRIBED ATIVAN 0.5 MG - 1 TAB PO Q5H PRN - 8 TABS WERE PRESCRIBED.
--- NOTE | 2016-12-21 09:23 | NUR ---
ekg cancelled per er dr
--- NOTE | 2016-12-21 10:03 | NUR ---
nnamdi hilario accepts admission by berkley mcknight rn and DEVANG valentine
== END 2016-12-21 09:55 | disposition home or self-care (01) ==
LOC: EDUNIT# 07:40 → ED 07:40
DX: F10.229 Alcohol dependence with intoxication, unspecified (principal); Y90.8 Blood alcohol level of 240 mg/100 ml or more
CPT/HCPCS: 36415; 80053; 80307; 80320; 80329; 81003; 81015; 82140; 82550; 82553; 84443; 84484; 85025; 85610; 96360; 99285; J7030; 93005; 99283

== ENCOUNTER → 2016-12-21 | Outpatient (CLI) | payer OTHER ==
[~2016-12-21] MED LIST changes: +CLN.1T PO; +CLON0.1T PO; +LORA-404 PO; +LORA0.5T PO
== END ==
LOC: EMS 10:25
PROVIDERS: ATTEND Emergency Medicine
DX: R07.89 Other chest pain (principal); F10.10 Alcohol abuse, uncomplicated